=== PATIENT | male | born 1965 | race Hispanic/Latino ===

== ENCOUNTER 2019-09-09 10:12 | Emergency (ER) | payer OTHER ==
[~2019-09-09] VITALS: Ht 167.6 cm; Wt 81.6 kg
[2019-09-09] MEDS ORDERED: SODIUM CHLORIDE 0.9% 1000ML 1,000 ML IV STA (10:32)
--- NOTE | 2019-09-09 11:32 | Diagnostic Imaging Report ---
EXAMINATION: CHEST SINGLE (PORTABLE) INDICATION: Pneumonia COMPARISON: None FINDINGS: LINES/TUBES:None LUNGS:The lungs are moderately inflated. Bibasilar patchy opacities. PLEURA:No pleural effusion or pneumothorax. MEDIASTINUM:The cardiomediastinal silhouette appears normal in size and shape. BONES/SOFT TISSUES:No acute osseous injury. ABDOMEN:No free air under the diaphragm. IMPRESSION: Bibasilar patchy opacities compatible with pneumonia in the proper clinical setting. Signed by: Ronal Plasencia MD on 09/09/2019 11:28 AM
[2019-09-09] MEDS ORDERED: CEFTRIAXONE SOD 1 GM/NS 50 ML 50 ML IV SCH (11:45)
[2019-09-09 11:55] LABS: BASOPHILS % 0.4 % (0.0-1.0); HEMATOCRIT 36.2 % (38.2-49.6); HEMOGLOBIN 12.9 g/dL (14.0-18.0); LYMPHOCYTES # (AUTO) 0.3 (1.0-3.2); LYMPHOCYTES % 2.8 % (18.0-39.1); MEAN CORPUSCULAR HEMOGLOBIN 29.9 pg (28-32); MEAN CORPUSCULAR HGB CONC 35.6 g/dL (31-35); MEAN CORPUSCULAR VOLUME 83.8 fL (81-99); MONOCYTES # (AUTO) 0.4 (0.2-0.8); MONOCYTES % 4.1 % (4.4-11.3); NEUTROPHILS # (AUTO) 9.7 (2.1-6.9); NEUTROPHILS % 91.7 % (38.7-80.0); PLATELET COUNT 263 x10e3/uL (140-360); RED BLOOD COUNT 4.32 x10e6/uL (4.3-5.7)
[2019-09-09 12:06] LABS: INR 1.01; PROTHROMBIN TIME 13.9 seconds (11.9-14.5)
[2019-09-09 12:07] LABS: PARTIAL THROMBOPLASTIN TIME 28.2 seconds (23.8-35.5)
[2019-09-09 12:14] LABS: ALANINE AMINOTRANSFERASE 17 IU/L (0-55); ALBUMIN 2.8 g/dL (3.5-5.0); ALBUMIN/GLOBULIN RATIO 0.5 (0.8-2.0); ALKALINE PHOSPHATASE 179 IU/L (40-150); ANION GAP 17.3 mmol/L (8-16); BLOOD UREA NITROGEN 15 mg/dL (7-26); BUN/CREATININE RATIO 20 (6-25); CALCIUM 9.5 mg/dL (8.4-10.2); CARBON DIOXIDE 25 mmol/L (22-29); CHLORIDE 91 mmol/L (98-107); CREATINE KINASE 27 IU/L (30-200); CREATININE, SERUM 0.74 mg/dL (0.72-1.25); EST GLOMERULAR FILTRATION RATE > 60 ML/MIN (60-); GLUCOSE 253 mg/dL (74-118); POTASSIUM 4.3 mmol/L (3.5-5.1); SODIUM 129 mmol/L (136-145)
[2019-09-09] MEDS ORDERED: AZITHROMYCIN 500MG/NS 250 ML 250 ML IV SCH (12:30)
[2019-09-09 13:38] LABS: LYMPHOCYTES % (MANUAL) 3 % (19-48); MONOCYTES % (MANUAL) 4 % (3.4-9.0); NEUTROPHILS % (MANUAL) 93 % (40-74); PLATELET ESTIMATE ADEQUATE; PLATELET MORPHOLOGY COMMENT NORMAL; RBC MORPHOLOGY COMMENT NORMAL
--- NOTE | 2019-09-09 13:50 | NUR ---
HI FLOW OXYGEN STARTED
[2019-09-09 15:09] LABS: CLARITY,URINE SL CLOUDY (CLEAR); COLOR,URINE STRAW (YELLOW); LEUKOCYTE ESTERASE ,URINE NEGATIVE (NEGATIVE); NITRITE,URINE NEGATIVE (NEGATIVE)
[2019-09-09 15:10] LABS: BILIRUBIN,URINE NEGATIVE (NEGATIVE); KETONES,URINE 2+ (NEGATIVE); PROTEIN,URINE DIPSTICK NEGATIVE (NEGATIVE); URINE UROBILINOGEN 8 mg/dL (0.2 - 1)
[2019-09-09] MEDS ORDERED: ENOXAPARIN SOD INJ 40 MG/0.4 ML SYR SC SCH (15:15)
[2019-09-09] MEDS ORDERED: DEXAMETHASONE SOD PHOS 10 MG/1 ML VIAL IV SCH (15:15)
--- NOTE | 2019-09-09 15:20 | Emergency Department Note ---
History of Present Illnes History of Present Illness Chief Complaint: COVID PUI History of Present Illness This is a 53 year old male COVID TEST DONE [facility] - STILL PENDING. SON WITH POSITIVE COVID. SOB COUGH. SATS 83% ROOM AIR. EX SMOKER QUIT 4 YEARS AGO. ARRIVED AAOX4. ABLE TO AMBULATE. UP TO 95% ON 5 LPM. Historian: Patient Arrival Mode: Car Patent Engineer Required: No Onset (how long ago): day(s) (5) Radiation: Reports non-radiation Severity: moderate Onset quality: gradual Timing of current episode: constant Progression: worsening Chronicity: new Context: Reports recent illness Relieving factors: none Exacerbating factors: none Associated symptoms: Reports cough, Reports fever/chills, Reports shortness of breath, Reports other (ACHY ALL OVER) Treatments prior to arrival: none Past Medical/Family History Physician Review I have reviewed the patient's past medical and family history. Any updates have been documented here. Past Medical History Recent Fever: No Clinical Suspicion of Infectio: No New/Unexplained Change in Ment: No Past Medical History: Hypertension, Diabetes Past Surgical History: None Social History Smoking Cessation: Former smoker Counseling Performed: No Alcohol Use: Occasional Any Illegal Drug Use: No TB Exposure/Symptoms: No Physically hurt or threatened: No Family History Family history of heart diseas: No Other Last Tetanus: UNK Any Pre-Existing Lines (PICC,: No Is patient up to date on immun: No Last Flu: UTD Last Pneumovax: UTD Review of Systems Review of Systems Constitutional: Reports no symptoms EENTM: Reports no symptoms Cardiovascular: Reports no symptoms Respiratory: Reports as per HPI Gastrointestinal: Reports no symptoms Genitourinary: Reports no symptoms Musculoskeletal: Reports no symptoms Integumentary: Reports no symptoms Neurological: Reports no symptoms Psychological: Reports no symptoms Endocrine: Reports no symptoms Hematological/Lymphatic: Reports no symptoms Physical Exam Related Data Allergies: Coded Allergies: No Known Allergies (Unverified , 09/09/19) Triage Vital Signs Vital Signs Date Time Temp Pulse Resp B/P (MAP) Pulse Ox O2 Delivery O2 Flow Rate FiO2 09/09/19 10:31 99.3 90 36 136/90 83 Vital signs reviewed: Yes Physical Exam CONSTITUTIONAL Constitutional: Present well-developed, Present well-nourished, Present distressed HENT HENT: Present normocephalic, Present atraumatic, Present oropharynx clear/moist, Present nose normal HENT L/R: Present left ext ear normal, Present right ext ear normal EYES Eyes: Reports PERRL, Reports conjunctivae normal NECK Neck: Present ROM normal PULMONARY Pulmonary: Present respiratory distress (RR 36), Present other (DECREASED BS'S BILAT BASES) CARDIOVASCULAR Cardiovascular: Present regular rhythm, Present heart sounds normal, Present capillary refill normal, Present normal rate GASTROINTESTINAL Abdominal: Present soft, Present nontender, Present bowel sounds normal GENITOURINARY Genitourinary: Present exam deferred SKIN Skin: Present warm, Present dry MUSCULOSKELETAL Musculoskeletal: Present ROM normal NEUROLOGICAL Neurological: Present alert, Present oriented x 3, Present no gross motor or sensory deficits PSYCHOLOGICAL Psychological: Present mood/affect normal, Present judgement normal Results Laboratory Result Diagram: 09/09/19 1115 09/09/19 1115 Laboratory Laboratory Tests Test 09/09/19 14:12 09/09/19 13:25 09/09/19 11:15 White Blood Count 10.56 x10e3/uL (4.8-10.8) Red Blood Count 4.32 x10e6/uL (4.3-5.7) Hemoglobin 12.9 g/dL (14.0-18.0) Hematocrit 36.2 % (38.2-49.6) Mean Corpuscular Volume 83.8 fL (81-99) Mean Corpuscular Hemoglobin 29.9 pg (28-32) Mean Corpuscular Hemoglobin Concent 35.6 g/dL (31-35) Red Cell Distribution Width 11.0 % (11.7-14.4) Platelet Count 263 x10e3/uL (140-360) Neutrophils (%) (Auto) 91.7 % (38.7-80.0) Lymphocytes (%) (Auto) 2.8 % (18.0-39.1) Monocytes (%) (Auto) 4.1 % (4.4-11.3) Eosinophils (%) (Auto) 0.0 % (0.0-6.0) Basophils (%) (Auto) 0.4 % (0.0-1.0) Neutrophils # (Auto) 9.7 (2.1-6.9) Lymphocytes # (Auto) 0.3 (1.0-3.2) Monocytes # (Auto) 0.4 (0.2-0.8) Eosinophils # (Auto) 0.0 (0.0-0.4) Basophils # (Auto) 0.0 (0.0-0.1) Absolute Immature Granulocyte (auto 0.11 x10e3/uL (0-0.1) Differential Total Cells Counted 100 Neutrophils % (Manual) 93 % (40-74) Lymphocytes % (Manual) 3 % (19-48) Monocytes % (Manual) 4 % (3.4-9.0) Platelet Estimate Adequate Platelet Morphology Comment Normal Red Cell Morphology Comment Normal Prothrombin Time 13.9 seconds (11.9-14.5) Prothromb Time International Ratio 1.01 Activated Partial Thromboplast Time 28.2 seconds (23.8-35.5) Sodium Level 129 mmol/L (136-145) Potassium Level 4.3 mmol/L (3.5-5.1) Chloride Level 91 mmol/L (98-107) Carbon Dioxide Level 25 mmol/L (22-29) Anion Gap 17.3 mmol/L (8-16) Blood Urea Nitrogen 15 mg/dL (7-26) Creatinine 0.74 mg/dL (0.72-1.25) Estimat Glomerular Filtration Rate > 60 ML/MIN (60-) BUN/Creatinine Ratio 20 (6-25) Glucose Level 253 mg/dL (74-118) Calcium Level 9.5 mg/dL (8.4-10.2) Total Bilirubin 1.2 mg/dL (0.2-1.2) Aspartate Amino Transf (AST/SGOT) 21 IU/L (5-34) Alanine Aminotransferase (ALT/SGPT) 17 IU/L (0-55) Alkaline Phosphatase 179 IU/L (40-150) Creatine Kinase 27 IU/L (30-200) Creatine Kinase MB 0.50 ng/mL (0-5.0) Troponin I < 0.001 ng/mL (0-0.300) B-Type Natriuretic Peptide 74.9 pg/mL (0-100) Total Protein 8.0 g/dL (6.5-8.1) Albumin 2.8 g/dL (3.5-5.0) Globulin 5.2 g/dL (2.3-3.5) Albumin/Globulin Ratio 0.5 (0.8-2.0) Lab results reviewed: Yes Imaging Imaging results reviewed: Yes Impressions Procedure: [id number] DX/CHEST SINGLE (PORTABLE) Exam Date: 09/09/19 Exam Time: 1040 REPORT STATUS: Signed EXAMINATION: CHEST SINGLE (PORTABLE) INDICATION: Pneumonia COMPARISON: None FINDINGS: LINES/TUBES:None LUNGS:The lungs are moderately inflated. Bibasilar patchy opacities. PLEURA:No pleural effusion or pneumothorax. MEDIASTINUM:The cardiomediastinal silhouette appears normal in size and shape. BONES/SOFT TISSUES:No acute osseous injury. ABDOMEN:No free air under the diaphragm. IMPRESSION: Bibasilar patchy opacities compatible with pneumonia in the proper clinical setting. Signed by: Ronal Plasencia MD on 09/09/2019 11:28 AM Procedures 12 Lead ECG Interpretation ECG Interpretation : ECG: ECG 1 Patent Engineer: Interpreted by ED physician Date: Sep 09, 2019 Time: 11:03 Rhythm: sinus rhythm Rate: normal (87) QRS axis: normal ST segment elevation: II (<1MM UPSLOPING), V5 (<1MM UPSLOPING), V6 (<1MM UPSLOPING) T waves normal: Yes Clinical Impression: abnormal ECG Critical Care Time Total Critical Care Time (min): 35 Critical care time exclusive o: separately billable procedures Critcal care necessary due to: respiratory failure Critcal care time spent by me: discussion w consultants, evaluation patient response to tx, examination of patient, order/perform tx or interventions, order/review radiographic studies, pulse oximetry, re-evaluation of patient condition Assessment & Plan Medical Decision Making MDM CBC, CHEM, CARDIACS, ECG, BNP, BLD CX'S, CXR, COVID - R/O STEMI/NSTEMI, COVID, PNEUMONIA, CHF, RENAL INSUFF, ELECTROLYTE ABNL Reassessment Reassessment HYPOXIA REQUIRING HIGH-FLOW NC (currently on 15L)- WILL NEED TO TRANSFER DUE TO NO ICU BEDS AVAILABLE HERE. I spoke with Dr Chan, [facility] at [facility] who accepts for transfer to ICU Assessment & Plan Final Impression: (1) Pneumonia due to COVID-19 virus (2) Respiratory distress (3) Hypoxia Depart Disposition: TRANS TO OTHER [facility] Last Vital Signs Date Time Temp Pulse Resp B/P (MAP) Pulse Ox O2 Delivery O2 Flow Rate FiO2 09/09/19 14:03 88 16 115/77 93 09/09/19 11:21 98.8 Medications in the ED Sodium Chloride 1,000 ml @ 0 mls/hr Q0M STAT IV Last administered on 09/09/19at 11:40; Admin Dose 999 MLS/HR; Start 09/09/19 at 10:32; Stop 09/09/19 at 10:35; Status DC Ceftriaxone Sodium 50 ml @ 100 mls/hr Q24H IV Last administered on 09/09/19at 12:30; Admin Dose 100 MLS/HR; Start 09/09/19 at 11:45; Stop 09/16/19 at 11:44 Azithromycin 250 ml @ 200 mls/hr DAILY IV Last administered on 09/09/19at 12:30; Admin Dose 200 MLS/HR; Start 09/09/19 at 12:30; Stop 09/16/19 at 12:29 TIM DOWELL MD Sep 09, 2019 15:19
--- NOTE | 2019-09-09 15:25 | NUR ---
pt is to be tx'd out d/t bed availability
[2019-09-09 15:26] LABS: BACTERIA,URINE MODERATE /HPF; EPITHELIAL CELLS,URINE FEW /LPF; WBC,URINE (MAN) 0-5 /HPF (0-5)
--- NOTE | 2019-09-09 16:38 | NUR ---
[facility] to transfer
[2019-09-09 16:49] VITALS: BP 122/82
--- NOTE | 2019-09-09 17:05 | NUR ---
TX PUT ON HOLD D/T + ON THE OTHER PATEINT, OTHER PT THEY ARE TO ROOM.
--- NOTE | 2019-09-09 22:15 | Consultation ---
DATE OF CONSULTATION: REASON FOR CONSULTATION: COVID-19 presumptive in this patient versus pneumonia. HISTORY OF PRESENT ILLNESS: This patient is a 53-year-old male, comes in with shortness of breath and cough. The patient has been sick for 5 days. Apparently, his son was tested positive when he was with his son. The patient who has history of diabetes mellitus. The patient is being admitted. The patient has been seen in the emergency room; however, because we in COVID-19, the patient is going to be transferred to another facility, but I was asked to see him urgently to make recommendation. When I saw the patient, he was alert, oriented, but he is saturating in the high 80s on 100%. PAST MEDICAL HISTORY: Diabetes mellitus, hypertension. PAST SURGICAL HISTORY: He denies. ALLERGIES: NKDA. SOCIAL HISTORY: There is no smoking, drug abuse, or alcohol abuse. PHYSICAL EXAMINATION: GENERAL: He is currently alert, oriented, does not seem to be in acute distress. VITAL SIGNS: Stable, afebrile. HEENT: He is not icteric. NECK: Supple. CHEST: Clear. HEART: S1 and S2. ABDOMEN: Soft. IMPRESSION AND PLAN: Agree to rule out for coronavirus disease-19, is very suspicious, concerned about superimposed bacterial pneumonia. We will put him on Rocephin and azithromycin. We will give him Decadron 6 mg IV x1, we will wait for the COVID-19, a course of 10 days is advised. Lovenox 40 subcu for now. Discussed with the patient about remdesivir. He is willing to try it. Should the patient stay, should his PCR came back positive, we will offer it for him. Continue oxygenation support as ordered. Discussed with the medical team at length. MD BENJIE Madrigal/ISAIAS /[id number]
== END 2019-09-09 18:14 | disposition other institution (70) ==
LOC: ER 10:27
DX: U07.1 COVID-19 (principal); J18.9 Pneumonia, unspecified organism; R06.03 Acute respiratory distress; R09.02 Hypoxemia; I10 Essential (primary) hypertension; E11.9 Type 2 diabetes mellitus without complications
CPT/HCPCS: 36415; 71045; 80053; 81001; 82550; 82553; 83880; 84484; 85025; 85610; 85730; 87040; 87635; 93005; 99284; J0456; J0696; J1100; J1650; J7030